=== PATIENT | female | born 1960 | race Caucasian/White ===

== ENCOUNTER → 2018-04-22 | Outpatient (CLI) | payer OTHER ==
[~2018-04-22] MED LIST: ALBU90OI INH; AMIT50; ANTIDEPRESSANT; ASPI81CH PO; ATOR20 PO; AZIT250; CHOLESTEROL MED; CLAR500 PO; CYCL10; DICL25ER PO; DOXY100 PO; ESTR1; GABA300 PO; HYDACE10B; HYDACE5; HYDACE5 PO; HYDACE5325 PO; HYDGUAL120 PO; HYDR1TAB94; INDO50 PO; KLONOPIN; LAMO25; LYRICA; METO25ER PO; METPRE4DP PO; MORP15ER PO; MULVITA; MULVITMIND PO; NEURONTIN; OXYACE5T PO; OXYC10ER; PREG75 PO; Pepcid20 MG PO; VENL25 PO
== END ==
LOC: OLS 11:36 → LAB SHORT 11:36
PROVIDERS: Obstetrics & Gynecology Gynecology
DX: N89.8 Other specified noninflammatory disorders of vagina (principal); Z12.72 Encounter for screening for malignant neoplasm of vagina
CPT/HCPCS: 87070; 87205; 87624; G0123

== ENCOUNTER → 2019-06-02 | Outpatient (CLI) | payer OTHER ==
[2019-06-04 13:06] LABS: HPV 16 Negative (Negative); HPV 18 Negative (Negative); HPV OTHER HR TYPES Negative (Negative)
== END | disposition home or self-care (01) ==
LOC: LAB SHORT 12:55 → LAB 12:55
PROVIDERS: Obstetrics & Gynecology Gynecology
DX: Z12.72 Encounter for screening for malignant neoplasm of vagina (principal); L29.3 Anogenital pruritus, unspecified
CPT/HCPCS: 87070; 87205; 87624; G0123

== ENCOUNTER 2019-10-30 12:45 | Emergency (ER) | payer OTHER ==
[~2019-10-30] VITALS: Ht 162.6 cm; Wt 79.8 kg
== END 2019-10-30 16:13 | disposition home or self-care (01) ==
LOC: ER 12:45
DX: S83.92XA Sprain of unspecified site of left knee, initial encounter (principal); G89.29 Other chronic pain; M54.9 Dorsalgia, unspecified; N18.9 Chronic kidney disease, unspecified; E78.00 Pure hypercholesterolemia, unspecified; F17.210 Nicotine dependence, cigarettes, uncomplicated; Z88.5 Allergy status to narcotic agent; Z91.09 Other allergy status, other than to drugs and biological substances; Z79.899 Other long term (current) drug therapy; X50.1XXA Overexertion from prolonged static or awkward postures, initial encounter
CPT/HCPCS: 29505; 51798; 72070; 72100; 73562-LT; 96361-59; 96374-59; 99283-25; J2270; J7030

== ENCOUNTER → 2025-10-31 | Outpatient (CLI) | payer OTHER ==
[2025-10-31 20:05] LABS: Red Blood Cells, Urine 25-50 /hpf (0-2)
[2025-10-31 20:38] LABS: Bacterial Vaginosis PCR Negative (NEGATIVE); Candida Group, PCR NOT DETECTED (NOT DETECT); Candida glabrata-krusei, PCR NOT DETECTED (NOT DETECT)
== END ==
LOC: LAB 16:10 → LAB SHORT 16:10
DX: N93.9 Abnormal uterine and vaginal bleeding, unspecified (principal); R10.24 Suprapubic pain; R30.0 Dysuria
CPT/HCPCS: 81015; 81515; 87086